=== PATIENT | female | born 1965 | race Caucasian/White ===

== ENCOUNTER 2017-01-03 15:33 | Inpatient (IN) | payer OTHER ==
[2017-01-03] MEDS ORDERED: SODIUM CHLORIDE 0.9% 1,000 ML ONE ×2 (16:43→22:03)
[2017-01-03] MEDS ORDERED: ONDANSETRON 4 MG/2ML 2 ML VIAL ONE (16:43)
[2017-01-03] MEDS ORDERED: ACETAMINOPHEN 325 MG TABLET ONE (16:43)
[2017-01-03 16:49] LABS: URINE BILIRUBIN NEGATIVE (NEGATIVE); URINE BLOOD 3+ (NEGATIVE); URINE GLUCOSE (UA) 3+ (NEGATIVE); URINE LEUKOCYTE ESTERASE NEGATIVE (NEGATIVE); URINE NITRITE NEGATIVE (NEGATIVE); URINE PROTEIN 1+ (NEGATIVE); URINE UROBILINOGEN NORMAL (0-1 mg/dl)
[2017-01-03 16:50] LABS: ABSOLUTE NEUTROPHIL COUNT 10.5 K/mm3 (1.8-7.7); BASO % 0.3 % (0.2-1.0); HEMATOCRIT 42.2 % (37.0-47.0); HEMOGLOBIN 13.1 gm/l (12.0-16.0); IMM NEUT # 0.1 K/mm3 (0-0.2); IMM NEUT% 0.4 % (0-1); LYMPH # 0.3 (1.0-4.8); LYMPH % 2.6 % (15-45); MEAN CELL VOLUME 85.8 fl (81.0-99.0); MEAN CORPUSCULAR HEMOGLOBIN 26.6 pg (27.0-31.0); MEAN PLATELET VOLUME 13.3 fl (7.4-10.4); MONO # 0.8 (0.0-0.8); MONO % 6.7 % (4-12); PLATELET COUNT 142 K/mm3 (130-400); RED CELL DISTRIBUTION WIDTH 15.5 % (11.5-14.5)
[2017-01-03 16:52] LABS: URINE APPEARANCE CLEAR; URINE COLOR LIGHT YELLOW
[2017-01-03 17:01] LABS: ALB/GLOB RATIO 0.9 (>1.0); ALBUMIN 3.9 gm/dL (3.5-5.7); CALCIUM 9.5 mg/dL (8.6-10.3)
[2017-01-03 17:03] LABS: URINE BACTERIA 1+
[2017-01-03] MEDS ORDERED: INSULIN REGULAR HUMAN (DOSE) 100 UNITS/1 ML ONE (17:24)
--- NOTE | 2017-01-03 18:04 | RAD ---
01/03/2017 5:59 PM CHEST - 2 VIEWS History: Bodyaches Comparison: 01/24/2016 Findings: Two views of the chest are obtained. The lungs demonstrate patchy perihilar airspace disease on the right. Findings are worrisome for pneumonia despite low volumes. The cardiomediastinal silhouette is unremarkable.. The osseous structures are intact.. IMPRESSION: Findings worrisome for right perihilar pneumonia despite low volumes. Follow-up as clinically warranted.
--- NOTE | 2017-01-03 18:50 | US ---
ABDOMINAL-LIMITED: 01/03/2017 5:48 PM CLINICAL HISTORY: Right upper quadrant pain. STUDY: Limited right upper quadrant ultrasound COMPARISON: none FINDINGS: Gallbladder: Wall thickness: Normal Cholelithiasis: none Pericholecystic Fluid: none Sonographic Reyna's Sign: Positive Bile ducts: Common bile duct measures 4 mm. Limited visualized Liver and RUQ structures: normal IMPRESSION: Positive sonographic Reyna's sign without definite findings of cholelithiasis. No wall thickening or pericholecystic fluid is identified either. Correlation with exam and history would be recommended for biliary pathology. Nuclear medicine scintigraphy could be helpful in further assessment as clinically warranted. Report was uploaded to the electronic medical record at approximately 1847 hours on 01/03/2017.
[2017-01-03] MEDS ORDERED: CEFTRIAXONE 1 GRAM DUPLEX 50 ML IV ONE (19:59)
[2017-01-03] MEDS ORDERED: INSULIN REGULAR HUMAN (DOSE) 100 UNITS in SODIUM CHLORIDE 0.9% 99 ML IV PRN (21:30)
[2017-01-03] MEDS ORDERED: PUMP TUBING ONE (22:02)
[2017-01-03] MEDS: SODIUM CHLORIDE 0.9% 1,000 ML IV SCH (22:15)
[2017-01-03 22:32] VITALS: BMI 24.0
[2017-01-03] MEDS ORDERED: BISACODYL 5 MG TABLET.EC PO PRN (22:44)
[2017-01-03] MEDS ORDERED: MENTHOL/CETYLPYRD 1 EACH LOZENGE PO PRN (22:44)
[2017-01-03] MEDS ORDERED: BISACODYL 10 MG SUP PR PRN (22:44)
[2017-01-03] MEDS ORDERED: SODIUM CHLORIDE 0.9% 100 ML IV PRN (22:44)
[2017-01-03] MEDS ORDERED: MAGNESIUM HYDROXIDE 30 ML UDCUP PO PRN (22:44)
[2017-01-03] MEDS ORDERED: BLISTEX LIPSTICK 1 EACH TP PRN (22:44)
[2017-01-03] MEDS ORDERED: D5 1/2NS with 20 mEq KCL 1,000 ML IV SCH (22:45)
[2017-01-03] MEDS ORDERED: ONDANSETRON 4 MG/2ML 2 ML VIAL IV PRN (22:50)
[2017-01-03 23:50] LABS: MAGNESIUM 2.5 mg/dL (1.9-2.7)
[2017-01-04] MEDS ORDERED: POTASSIUM CHLORIDE 20 MEQ in SODIUM CHLORIDE 0.9% 250 ML IV ONE (00:11)
[2017-01-04] MEDS ORDERED: POTASSIUM CHLORIDE 20MEQ/100ML 100 ML IV SCH (00:30)
[2017-01-04 01:23] LABS: CALCIUM 8.8 mg/dL (8.6-10.3)
[2017-01-04] MEDS: SODIUM CHLORIDE 0.9% 1,000 ML IV SCH ×5 (02:09→20:01)
[2017-01-04] MEDS: D5NS with 20mEq KCL 1,000 ML IV SCH ×6 (03:06→23:26)
[2017-01-04 03:48] LABS: CALCIUM 8.9 mg/dL (8.6-10.3)
[2017-01-04 03:53] LABS: BASO # 0.1 K/mm3 (0.0-0.2); BASO % 0.5 % (0.2-1.0); HEMOGLOBIN 12.4 gm/l (12.0-16.0); IMM NEUT # 0.1 K/mm3 (0-0.2); IMM NEUT% 1.3 % (0-1); LYMPH # 0.6 (1.0-4.8); LYMPH % 5.1 % (15-45); MEAN CORPUSCULAR HEMOGLOBIN 26.4 pg (27.0-31.0); MEAN CORPUSCULAR HGB CONC 32.6 g/dl (33.0-37.0); MEAN PLATELET VOLUME 13.3 fl (7.4-10.4); MONO # 1.1 (0.0-0.8); NEUT % 83.1 % (43-75); PLATELET COUNT 132 K/mm3 (130-400); RED CELL DISTRIBUTION WIDTH 14.4 % (11.5-14.5)
[2017-01-04] MEDS ORDERED: INSULIN REGULAR HUMAN (DOSE) 100 UNITS/1 ML ONE (05:28)
[2017-01-04] MEDS: INSULIN REGULAR HUMAN (DOSE) 100 UNITS in SODIUM CHLORIDE 0.9% 99 ML IV PRN ×6 (06:18→22:43)
--- NOTE | 2017-01-04 06:46 | HP ---
Sarahy Beach : 1965 CHIEF COMPLAINT: Not feeling well. HISTORY OF PRESENT ILLNESS: For the past 4 to 5 days, last Sunday, patient has felt ill with cold like symptoms and abdominal pain. She said she has felt cold, she has had some congestion, and sore throat. No coughing. No chest pain. She has had nausea, dizziness, and abdominal pain with this, however. She has not been taking her medications, she cannot recall the last time she took it. She has been drinking a large volume of regular pop. She has never felt this poorly before. In the emergency department, she was found to have a possible pneumonia and an elevated blood sugar of 1152. She is being admitted for treatment of hyperosmolar, hyperglycemic ketoacidosis. REVIEW OF SYSTEMS: General: Feels cold. No fevers. ENT: Congestion, throat pain. Cardiovascular: No chest pain or pressure. Respiratory: No shortness of breath or coughing. Abdomen; She has had abdominal pain and nausea. : Urinary urgency and frequency. No burning. Musculoskeletal: She has shoulder pain. Neurologic: No numbness, tingling. She has had dizziness. FAMILY MEDICAL HISTORY: Mom with liver problems. PAST MEDICAL HISTORY: Includes diabetes type 2, hypertension, hypothyroidism, psoriatic arthritis, recent dental work for dental abscesses, liver problem. ALLERGIES: None. MEDICATIONS: 1. Leflunomide. 2. Metoprolol. 3. Levothyroxine. 4. Metformin. 5. Loratadine. PAST SURGICAL HISTORY: None. SOCIAL HISTORY: Patient lives with her and her parents at home. She has been out of work due to her company going out of business. She denies alcohol, tobacco, marijuana, heroin, or cocaine use. PHYSICAL EXAMINATION: VITALS: Patient's heart rate is 96, blood pressure 133/55, she is saturating 96% on room air with a temperature of 98.2. GENERAL: She is alert and oriented in no acute distress. Light pallor. HEENT: Normocephalic, atraumatic. No tenderness to palpation. Her mucous membranes are dry. Her tongue is dry and cracked with orange plaque on it. She has numerous missing teeth with white film and possible dental abscess. White patches posterior oropharynx. NECK: Supple. Trachea is midline. CARDOVASCULAR: Regular. Positive S1, S2. RESPIRATORY: Clear to auscultation bilaterally. No rhonchi or wheezing. ABDOMEN: Soft, nontender, no distention or rebound. She has bowel sounds. MUSCULOSKELETAL: She is moving extremities without difficulty. NEUROLOGIC: She is alert and oriented. LABORATORY STUDIES: White blood count 11.7, hemoglobin 15.1, hematocrit 42.2, platelet count of 142. Sed rate of 59. Sodium 125, potassium 4.2, chloride 79, carbon dioxide 33, anion gap 17, BUN 26, creatinine 1.4, glucose 1152, total bilirubin 1.6, alkaline phosphatase 232. Amylase 155, lipase 38. Urinalysis was obtained and it was clear and yellow, 1+ protein, 3+ glucose, 1+ ketones, 3+ blood, negative leukocyte esterase, 1-3 urine red blood cells, 5-8 urine white blood cells with 1+ budding these cells with hyphae. Rapid strep was preformed and it was negative. DIAGNOSTICS: Abdominal ultrasound was obtained and interrupted as a positive sonographic Reyna's sign without definite findings of cholelithiasis, no wall thickening or pericholecystic fluid identified. Chest x-ray was obtained and interrupted as worrisome findings for right perihilar pneumonia. ASSESSMENT AND PLAN: This is a 51-year-old female with psoriatic arthritis. Use of leflunomide in October due to her psoriatic arthritis presenting with medication non-adherent and multiple symptoms, found to have a highly elevated hyperglycemia. 1. Hyperosmolar/hyperglycemic acidosis. She is currently on an insulin drip. She has received 2 liters of intravenous fluids. She is currently running with intravenous fluids at 250 mL an hour. On an insulin drip she did receive 10 units of insulin in the emergency department and a dose of Rocephin. 2. Urinary tract infection secondary to yeast. We will obtain a urine culture and adjust antibiotics as appropriate. We will start her on Diflucan. 3. Acute kidney injury with a creatinine of 1.4. Will monitor closely. She is receiving copious intravenous fluids. 4. Hyponatremia. Corrected sodium is 142. Will monitor. 5. Hypertension, stable. Continue home medications. 6. Hypothyroidism. We will continue her current dose of levothyroxine may be contributing to current symptoms. 7. Psoriatic arthritis. She has been on disease-modifying antirheumatic drug therapy which can make her more susceptible to infections. We will continue to monitor. 8. Leukocytosis secondary to acute process going on. 9. Pneumonia. Will continue Rocephin and azithromycin and monitor. Repeat chest x-ray as she denies any symptoms of cough and shortness of breath. JOB: [id number]
--- NOTE | 2017-01-04 07:17 | PDOC43 ---
- Subjective Chief Complaint: not feeling well Patient awake, feeling much better. Abdominal pain has resolved. She is tired and feels thirsty. Water at bedside Subjective: Reports Pain Tolerable, Reports Tolerating Diet Well, Reports Urinating Without Difficulty, Denies Shortness of Breath, Denies Cough, Denies Chest Pain, Denies Abdominal Pain, Denies Nausea, Denies Vomiting - Objective Vital Signs Temperature 98.0 F 01/04/17 04:00 Pulse Rate 104 01/04/17 04:00 Respiratory Rate 19 01/04/17 04:00 Blood Pressure 118/44 01/04/17 04:00 O2 Saturation by Pulse Oximetry 94 01/04/17 04:00 Oxygen Delivery Method Nasal Cannula Oxygen Flow Rate 2 Intake and Output 01/02/17 01/03/17 01/04/17 23:59 23:59 23:59 Intake Total 2687 Output Total 250 Balance 2437 General: Alert, Oriented x3, Cooperative, No Acute Distress HEENT: Atraumatic, PERRLA, EOMI, Other (mucus membranes dry, improved from last night. Tongue with dry, orange colored plaque, less swollen) Lungs: Clear to Auscultation Bilaterally, Normal Air Movement Cardiovascular: Regular Rate and Rhythm, Normal S1 Abdomen: Soft, Non-Distended, No Rigid, No Tenderness, No Rebounding Extremities: No Cyanosis, No Edema, No Tenderness Neurological: Normal Speech, Other (possible developmental delay) Psych/Mental Status: Normal Mood Laboratory 01/04/17 03:20 01/04/17 03:21 01/04/17 01/04/17 01/04/17 06:12 05:08 04:01 MCH MCHC Anion Gap Estimated GFR POC Capillary Glucose 197 H 214 H 210 H % Immature Granulocyt 01/04/17 01/04/17 01/04/17 03:21 03:20 03:02 MCH 26.4 L MCHC 32.6 L Anion Gap 17 H Estimated GFR 52 L POC Capillary Glucose 220 H % Immature Granulocyt 1.3 H 01/04/17 01/04/17 01/04/17 02:04 00:55 00:03 MCH MCHC Anion Gap Estimated GFR 52 L POC Capillary Glucose 348 H 375 H 448 H % Immature Granulocyt 01/03/17 01/03/17 01/03/17 23:15 22:01 20:25 MCH MCHC Anion Gap Estimated GFR 47 L POC Capillary Glucose 582 H* > 600 H* > 600 H* % Immature Granulocyt Current Medications: Current meds reviewed in EMR. - Problems: Assessment/Plan (1) Uncontrolled type 2 diabetes mellitus with hyperosmolar nonketotic hyperglycemia Status: AcuteAssessment/Plan: Patient DMII diabetic found to have hyperglycemia with blood sugar of 1152. Received 2-3 liters of IVF and insulin infusion. Blood sugars under 200 currently. Still liters of fluid down as patient very "dry" on exam. Will continue copious IVF, transition to sliding scale insulin upon diet tolerance. Will need to determine appropriate home medication regime and dietary teaching. (2) Yeast infection Status: AcuteAssessment/Plan: 2nd to hyperglycemia. Difficult to determine if vaginal vs. cystitis as budding yeast seen on urine culture. Oropharynx with plaques. Diflucan and adjust according to urine culture results (3) Bacterial pneumonia, unspecified Status: AcuteAssessment/Plan: suspected, patient asymptomatic with right perihilar findings on CXR. Continue rocephin, add azithromycin and repeat CXR in day (4) Positive blood culture Status: AcuteAssessment/Plan: difficult to determine source, gram positive bacilli on blood culture. Change ABx to zosyn for broader coverage (5) ANALIA (acute kidney injury) Status: AcuteAssessment/Plan: Cre 1.4 on admission down to 1.1 with fluid hydration. Monitor (6) Hypertension Qualifiers: Hypertension type: essential hypertension Qualifier Code: (I10) Essential (primary) hypertension Status: AcuteAssessment/Plan: on metoprolol and will continue. Patient had Rx for HCTZ but told me that she was told to stop taking it for liver problems. Unsure if she was referring to her humira/luflenomide or the HCTZ stable (7) Hypothyroid Qualifiers: Hypothyroidism type: acquired Qualifier Code: (E03.9) Hypothyroidism, unspecified Status: AcuteAssessment/Plan: presumed stable but will check TSH (8) Uncontrolled type 2 diabetes mellitus Qualifiers: Diabetes mellitus complication status: with hyperglycemia Diabetes mellitus ferry terminal agent insulin use: without alf use Qualifier Code: ( E11.65) Type 2 diabetes mellitus with hyperglycemia Status: AcuteAssessment/ Plan: patient not taking medication for an unknown length of time with NK. She is a poor candidate for home insulin therapy. Check A1c. Diabetic teaching and work to determine PO medication regime (9) Psoriatic arthritis Status: AcuteAssessment/Plan: with prior DMARD use. With DMARD use and hyperglycemia, patient at high risk for infection VTE Prophylaxis: SCD's, ambulation
[2017-01-04] MEDS: ACETAMINOPHEN 325 MG TABLET PO PRN ×2 (07:27→14:02)
[2017-01-04 07:49] LABS: BAND 7 % (0-10); BASOPHIL 0 % (0-1); EOSINOPHIL 0 % (1-3); LYMPHOCYTE 10 % (15-45); MONOCYTE 9 % (4-12); NEUTROPHILS 74 % (43-75); TOTAL CELLS COUNTED 100
[2017-01-04 07:50] LABS: PLATELET ESTIMATE NORMAL (NORMAL)
[2017-01-04] MEDS: DOCUSATE SODIUM 100 MG CAPSULE PO SCH ×2 (08:13→20:29)
[2017-01-04] MEDS: FLUCONAZOLE 100 MG TABLET PO SCH (08:13)
[2017-01-04] MEDS: PIPERACILLIN-TAZO PREMIX BAG 3.375 G in Premix (D5W) 50 ml 1 EACH IV SCH ×3 (08:13→19:32)
[2017-01-04] MEDS ORDERED: AZITHROMYCIN 250 MG TABLET PO SCH (09:00)
[2017-01-04 13:11] LABS: CALCIUM 8.4 mg/dL (8.6-10.3)
[2017-01-04 16:00] LABS: A1C-GLYCOHEMOGLOBIN 1.8 g/dl; HEMOGLOBIN-GLYCO 12.6 g/dl
[2017-01-04 18:58] LABS: CALCIUM 7.7 mg/dL (8.6-10.3)
[2017-01-04] MEDS ORDERED: CEFTRIAXONE SODIUM 2 G in SODIUM CHLORIDE 0.9% 100 ML IV SCH (21:00)
[2017-01-05] MEDS: INSULIN REGULAR HUMAN (DOSE) 100 UNITS in SODIUM CHLORIDE 0.9% 99 ML IV PRN ×2 (00:52→02:54)
[2017-01-05] MEDS: PIPERACILLIN-TAZO PREMIX BAG 3.375 G in Premix (D5W) 50 ml 1 EACH IV SCH ×2 (01:49→07:04)
[2017-01-05] MEDS: SODIUM CHLORIDE 0.9% 1,000 ML IV SCH ×2 (03:06→12:14)
[2017-01-05] MEDS: D5NS with 20mEq KCL 1,000 ML IV SCH ×3 (03:07→12:13)
[2017-01-05 06:42] LABS: CALCIUM 7.4 mg/dL (8.6-10.3)
[2017-01-05] MEDS: ACETAMINOPHEN 325 MG TABLET PO PRN (07:04)
[2017-01-05] MEDS: DOCUSATE SODIUM 100 MG CAPSULE PO SCH ×2 (09:21→20:23)
[2017-01-05] MEDS: FLUCONAZOLE 100 MG TABLET PO SCH (09:40)
[2017-01-05] MEDS: CEFTRIAXONE 1 GRAM DUPLEX 50 ML IV SCH (11:07)
[2017-01-05] MEDS ORDERED: INSULIN GLARGINE (DOSE) 100 UNITS/ML UNIT SUB-Q SCH (12:00)
--- NOTE | 2017-01-05 12:02 | PDOC43 ---
- Subjective Chief Complaint: not feeling well Feeling better. Tired. Abd pain resolved. Poor appetite. No N/V. No F/C. No CP/SOB. - Objective Vital Signs Temperature 98.5 F 01/05/17 10:44 Pulse Rate 82 01/05/17 10:44 Respiratory Rate 18 01/05/17 11:10 Blood Pressure 107/41 01/05/17 10:44 O2 Saturation by Pulse Oximetry 97 01/05/17 10:44 Oxygen Delivery Method Room Air Oxygen Flow Rate 0 Intake and Output 01/04/17 01/05/17 01/06/17 06:59 06:59 06:59 Intake Total 2687 4915 Output Total 250 2510 275 Balance 2437 2405 -275 General: Alert, Oriented x3, Cooperative, Other (Flat affect.), No Acute Distress Lungs: Clear to Auscultation Bilaterally Cardiovascular: Regular Rate and Rhythm Abdomen: Soft, Normal Bowel Sounds, Non-Distended, No Tenderness, No Rebounding Extremities: Normal Pulses, No Edema, No Tenderness Laboratory 01/04/17 03:20 01/05/17 05:30 01/04/17 03:20 Hemoglobin A1c 15.0 H TSH 10.58 H Current Medications: Current meds reviewed in EMR. - Problems: Assessment/Plan (1) UTI (urinary tract infection) Qualifiers: Urinary tract infection type: acute cystitis Status: AcuteAssessment/Plan : POA. Cx now growing E.coli. Also with E. coli in blood cx. Con't rocephin and supportive care. (2) Uncontrolled type 2 diabetes mellitus Qualifiers: Diabetes mellitus complication status: with hyperglycemia Diabetes mellitus remote computer terminal operator insulin use: without remote computer terminal operator use Qualifier Code: ( E11.65) Type 2 diabetes mellitus with hyperglycemia Status: AcuteAssessment/ Plan: Not taking medication for an unknown length of time with HHNK on admit. A1c= 15. Diabetic teaching. Start lantus plus po today. (3) Bacterial pneumonia, unspecified Status: AcuteAssessment/Plan: No clinical evidence of pna. (4) Hypothyroid Qualifiers: Hypothyroidism type: acquired Qualifier Code: (E03.9) Hypothyroidism, unspecified Status: AcuteAssessment/Plan: Elevated TSH- presumed medical non-compliance. Resume usual dose of levothyroxine. (5) Hypertension Qualifiers: Hypertension type: essential hypertension Qualifier Code: (I10) Essential (primary) hypertension Status: AcuteAssessment/Plan: Stable on metoprolol. VTE Prophylaxis: SCD's, ambulation
[2017-01-05] MEDS: INSULIN ASPART (DOSE) 100 UNITS/1 ML SUB-Q PRN (17:16)
[2017-01-05] MEDS: METOPROLOL TARTRATE 50 MG TABLET PO SCH (20:25)
[2017-01-06 05:46] LABS: HEMATOCRIT 31.9 % (37.0-47.0); HEMOGLOBIN 10.7 gm/l (12.0-16.0); MEAN CELL VOLUME 78.8 fl (81.0-99.0); MEAN CORPUSCULAR HEMOGLOBIN 26.4 pg (27.0-31.0); MEAN CORPUSCULAR HGB CONC 33.5 g/dl (33.0-37.0); RED CELL DISTRIBUTION WIDTH 14.6 % (11.5-14.5)
[2017-01-06 05:59] LABS: ALB/GLOB RATIO 0.8 (>1.0); ALBUMIN 2.4 gm/dL (3.5-5.7); CALCIUM 7.2 mg/dL (8.6-10.3)
--- NOTE | 2017-01-06 07:46 | PDOC43 ---
- Subjective Chief Complaint: weakness, abd pain Still with abd pain but much improved. Better po intake. No N/V. No F/C. Subjective: Reports Tolerating Diet Well, Denies Shortness of Breath, Denies Cough, Denies Chest Pain, Denies Fever, Denies Chills - Objective Vital Signs Temperature 99 F 01/06/17 07:17 Pulse Rate 85 01/06/17 07:17 Respiratory Rate 18 01/06/17 07:17 Blood Pressure 108/67 01/06/17 07:17 O2 Saturation by Pulse Oximetry 92 01/06/17 07:17 Oxygen Delivery Method Room Air Oxygen Flow Rate 0 Intake and Output 01/05/17 01/06/17 01/07/17 06:59 06:59 06:59 Intake Total 4915 1720 Output Total 2510 2275 Balance 2405 -555 General: Alert, Oriented x3, Cooperative, Other (Flat affect) Lungs: Clear to Auscultation Bilaterally Cardiovascular: Regular Rate and Rhythm Abdomen: Soft, Normal Bowel Sounds, Non-Distended, No Tenderness, No Rebounding , No Involuntary Guarding Extremities: Normal Pulses, No Edema Laboratory 01/06/17 05:20 01/06/17 05:20 Current Medications: Current meds reviewed in EMR. - Problems: Assessment/Plan (1) UTI (urinary tract infection) Qualifiers: Urinary tract infection type: acute cystitis Status: AcuteAssessment/Plan : POA. Cx now growing E.coli. Also with E. coli in blood cx. Con't rocephin and supportive care. (2) Uncontrolled type 2 diabetes mellitus Qualifiers: Diabetes mellitus complication status: with hyperglycemia Diabetes mellitus rug shampooer insulin use: without rug shampooer use Qualifier Code: ( E11.65) Type 2 diabetes mellitus with hyperglycemia Status: AcuteAssessment/ Plan: Not taking medication for an unknown length of time with HHNK on admit. A1c= 15. Diabetic teaching. Better control over last 24 hrs with basal/bolus. Pt today states not willing to try Lantus at home- will transition to po regimen with prn correction scale. Con't education. (3) Hypothyroid Qualifiers: Hypothyroidism type: acquired Qualifier Code: (E03.9) Hypothyroidism, unspecified Status: AcuteAssessment/Plan: Elevated TSH- presumed medical non-compliance. Resume usual dose of levothyroxine. (4) Hypertension Qualifiers: Hypertension type: essential hypertension Qualifier Code: (I10) Essential (primary) hypertension Status: AcuteAssessment/Plan: Stable on metoprolol. VTE Prophylaxis: SCD's, ambulation Disposition: Anticipate d/c in AM.
[2017-01-06] MEDS ORDERED: PNEUMOCOCCAL 23-VAL P-SAC VAC 0.5 ML VIAL IM V ONE (09:00)
[2017-01-06] MEDS ORDERED: FLU VACC 2016-17 (36MO-64Y)/PF 60 MCG/0.5 ML SYRINGE IM V ONE (09:00)
[2017-01-06] MEDS ORDERED: PUMP TUBING ONE (09:07)
[2017-01-06] MEDS: CEFTRIAXONE 1 GRAM DUPLEX 50 ML IV SCH (09:34)
[2017-01-06] MEDS: LEVOTHYROXINE SODIUM 50 MCG TABLET PO SCH (09:59)
[2017-01-06] MEDS: METFORMIN HCL 500 MG TABLET PO SCH ×2 (09:59→20:35)
[2017-01-06] MEDS: INSULIN ASPART (DOSE) 100 UNITS/1 ML SUB-Q PRN ×2 (09:59→11:39)
[2017-01-06] MEDS: FLUCONAZOLE 100 MG TABLET PO SCH (10:00)
[2017-01-06] MEDS: METOPROLOL TARTRATE 50 MG TABLET PO SCH ×2 (10:00→20:36)
[2017-01-06] MEDS: DOCUSATE SODIUM 100 MG CAPSULE PO SCH ×2 (10:00→20:21)
[2017-01-06] MEDS: GLIMEPIRIDE 2 MG TABLET PO SCH (10:00)
[2017-01-06] MEDS: ACETAMINOPHEN 325 MG TABLET PO PRN (10:00)
[2017-01-07 07:23] VITALS: BP 120/72
[2017-01-07] MEDS: POTASSIUM CHLORIDE 20 MEQ TAB.PRT.SR PO SCH ×2 (07:35→08:28)
--- NOTE | 2017-01-07 07:49 | PDOC5 ---
ADMIT DATE: 01/03/17 DISCHARGE DATE: 01/07/17 ADMISSION DIAGNOSES: Hyperosmolar Hyperglycemic Non-Ketotic Acidosis Discharge Diagnoses: Hyperosmolar Hyperglycemic Non-ketotic Acidosis Baceteremia UTI Hypothryoidism Uncontrolled DM II Hypertension Psoriatic Arthritis PROCEDURES PERFORMED THIS HOSPITALIZATION: none CONSULTATIONS: None HOSPITAL COURSE: This is a 51 year old female who presented to the emergency department for 4-5 days of feeling poorly with abdominal pain, congestion, sore throat. She was found to have an elevated glucose to 1125 with a slight increase in her anion gap to 17. She was admitted to the hospital and placed on an insulin infusion following DKA protocols. During continued evaluation, she was found to have a UTI. On the 2nd day of hospitalization, she was found to be bacetermic with e coli and her urine culture also grew e coli. She was treated for her diabetes, infection and her home medications were resumed. Her A1c was found to be 15, TSH elevated to 10.58. Electrolyte disturbance were corrected as necessary. She felt improved and was tolerating oral medications upon discharge. In diabetic teaching, she admits to not taking any of her medications and drinking a lot of pop. Her mother who also has diabetes participated in diabetic teaching and agrees with helping the patient in maintaining her medication regime. She is being discharged home with prescriptions for levaquin which the blood and urine culture show sensitivity to. Metformin at her prior dose of 250 mg BID and addition of amaryl. Continued use of levothyroxine, metoprolol and hydrochlorothiazide at her prior prescribed doses. - Exam Vital Signs Temperature 98.2 F 01/07/17 05:27 Pulse Rate 84 01/07/17 05:27 Respiratory Rate 16 01/07/17 05:27 Blood Pressure 97/50 01/07/17 05:27 O2 Saturation by Pulse Oximetry 97 01/07/17 05:27 Oxygen Delivery Method Room Air Oxygen Flow Rate 0 General: Alert, Oriented x3, Cooperative, No Acute Distress HEENT: Atraumatic, PERRLA, EOMI, Other (mucus membranes slightly dry) Lungs: Clear to Auscultation Bilaterally, Normal Air Movement Cardiovascular: Regular Rate and Rhythm, Normal S1, Normal S2 Abdomen: Soft, Non-Distended, No Rigid, No Tenderness, No Rebounding Extremities: No Cyanosis, No Edema, No Tenderness Peripheral Pulses: Radial (L): 1+, Radial (R): 1+ Neurological: Normal Speech Psych/Mental Status: Normal Mood - Results Laboratory 01/06/17 05:20 01/06/17 05:20 01/06/17 01/06/17 01/06/17 20:43 11:33 09:42 POC Capillary Glucose 160 H 261 H 170 H Laboratory Tests 01/03/17 01/04/17 16:20 03:20 Creatinine 1.4 H Glucose 1152 H* Hemoglobin A1c 15.0 H TSH 10.58 H Microbiology 01/03/17 16:20 Urine,Unknown Urine Culture - Final Escherichia Coli 01/03/17 16:20 Blood Aerobic Blood Culture - Final 01/03/17 16:20 Blood - Final Escherichia Coli Imaging Results: CXR: Right perihilar pneumonia despite low lung volumes Abdominal US: Positive sonographic Reyna's sign without definite findings of cholethiasis. no wall thickening or pericholecystic fluid. - Problems:Assessment/Plan (1) Uncontrolled type 2 diabetes mellitus with hyperosmolar nonketotic hyperglycemia Status: AcuteAssessment/Plan: Patient DMII diabetic found to have hyperglycemia with blood sugar of 1152. Received 2-3 liters of IVF and insulin infusion. Blood sugars under 200 currently. Still liters of fluid down as patient very "dry" on exam. Will continue copious IVF, transition to sliding scale insulin upon diet tolerance. Will need to determine appropriate home medication regime and dietary teaching. DC with metformin and amaryl. Patient's mother and patient underwent diabetic teaching. Patient's mother is also a diabetic and understands the importance of proper medication administration. Fear the patient is of high bounce back potential as she does not take her medications at home. (2) Yeast infection Status: AcuteAssessment/Plan: 2nd to hyperglycemia. Difficult to determine if vaginal vs. cystitis as budding yeast seen on urine culture. Oropharynx with plaques. Diflucan and adjust according to urine culture results 5 days of treatment completed (3) Bacterial pneumonia, unspecified Status: AcuteAssessment/Plan: No clinical evidence of pna. (4) Positive blood culture Status: AcuteAssessment/Plan: difficult to determine source, gram positive bacilli on blood culture. Change ABx to zosyn for broader coverage Will DC with levaquin per culture sensitivities. Source likely from e coli urine infection (5) ANALIA (acute kidney injury) Status: AcuteAssessment/Plan: Cre 1.4 on admission down to 1.1 with fluid hydration. Monitor (6) Hypertension Qualifiers: Hypertension type: essential hypertension Qualifier Code: (I10) Essential (primary) hypertension Status: AcuteAssessment/Plan: Stable on metoprolol. (7) Hypothyroid Qualifiers: Hypothyroidism type: acquired Qualifier Code: (E03.9) Hypothyroidism, unspecified Status: AcuteAssessment/Plan: Elevated TSH- presumed medical non-compliance. Resume usual dose of levothyroxine. (8) Uncontrolled type 2 diabetes mellitus Qualifiers: Diabetes mellitus complication status: with hyperglycemia Diabetes mellitus terminal supervisor insulin use: without terminal supervisor use Qualifier Code: ( E11.65) Type 2 diabetes mellitus with hyperglycemia Status: AcuteAssessment/ Plan: Not taking medication for an unknown length of time with HHNK on admit. A1c= 15. Diabetic teaching. Better control over last 24 hrs with basal/bolus. Pt today states not willing to try Lantus at home- will transition to po regimen with prn correction scale. Con't education. (9) Psoriatic arthritis Status: AcuteAssessment/Plan: with prior DMARD use. With DMARD use and hyperglycemia, patient at high risk for infection - Disposition: Disposition: Anticipate d/c in AM. - Discharge Plan Prescriptions: Glimepiride [Amaryl] 2 mg PO DAILY #30 tablet Metformin HCl [GLUCOPHAGE 500 MG TABLET (SHF)] 250 mg PO BID #30 tablet Hydrochlorothiazide 25 mg PO DAILY #30 tablet Potassium Chloride [K-DUR 20 MEQ SR TAB (SHF)] 20 meq PO DAILY #30 tab.[id number].[id number] Levofloxacin [Levaquin] 750 mg PO Q24H #10 tab Levothyroxine Sodium [LEVOTHROID 50 MCG TABLET (SHF)] 50 mcg PO DAILY #30 tablet Metoprolol Tartrate [LOPRESSOR 50 MG TABLET (SHF)] 50 mg PO BID #60 tablet Follow-Up: Lang Rao MD [Primary Care Provider] - 01/09/17 2:00 pm Condition: Stable Disposition: Home
[2017-01-07] MEDS: DOCUSATE SODIUM 100 MG CAPSULE PO SCH (08:27)
[2017-01-07] MEDS: LEVOTHYROXINE SODIUM 50 MCG TABLET PO SCH (08:27)
[2017-01-07] MEDS: METOPROLOL TARTRATE 50 MG TABLET PO SCH (08:27)
[2017-01-07] MEDS: METFORMIN HCL 500 MG TABLET PO SCH (08:28)
[2017-01-07] MEDS: FLUCONAZOLE 100 MG TABLET PO SCH (08:30)
[2017-01-07] MEDS: GLIMEPIRIDE 2 MG TABLET PO SCH (08:30)
== END 2017-01-07 09:50 | disposition home or self-care (01) | DRG 637 ==
LOC: ED 15:33 → ICU 19:52
PROVIDERS: ADMIT Family Medicine; ATTEND Family Medicine
DX: E11.00 Type 2 diabetes mellitus with hyperosmolarity without nonketotic hyperglycemic-hyperosmolar coma (NKHHC) (principal); J15.9 Unspecified bacterial pneumonia; N39.0 Urinary tract infection, site not specified; N17.9 Acute kidney failure, unspecified; B37.49 Other urogenital candidiasis; I10 Essential (primary) hypertension; I95.9 Hypotension, unspecified; L40.50 Arthropathic psoriasis, unspecified; Z91.14 Patient's other noncompliance with medication regimen; E11.22 Type 2 diabetes mellitus with diabetic chronic kidney disease; E03.9 Hypothyroidism, unspecified; B96.20 Unspecified Escherichia coli [E. coli] as the cause of diseases classified elsewhere